=== PATIENT | female | born 1955 | race Caucasian/White ===

== ENCOUNTER → 2016-03-11 06:58 | Outpatient (CLI) | payer OTHER ==
[2013-11-30 05:25] VITALS: BMI 24.7
[~2016-03-11 06:58] MED LIST: CREON (PANCRELI1 CAP PO; FLEXERIL5 MG PO; FOLIC ACID1 MG PO; METHOTREXATE2.5 MG PO; NEXIUM40 MG PO; ORAPRED ODT10 MG/TAB PO; TRAVATAN Z2.5 ML EACH EYE; VALTREX500 MG; VALTREX500 MG PO; VITAMIN D50000 UNIT PO
[2016-03-11 07:39] LABS: ALBUMIN 3.8 g/dL (3.4-5.0); BILIRUBIN - DIRECT 0.1 mg/dL (0.00-0.30); BILIRUBIN - INDIRECT 0.31 mg/dL (0.00-1.00); BILIRUBIN - TOTAL 0.41 mg/dL (0.2-1.3); PROTEIN - SERUM 6.6 g/dL (6.4-8.2)
== END ==
LOC: D.MRI 06:58
PROVIDERS: Internal Medicine Gastroenterology
DX: K85.90 Acute pancreatitis without necrosis or infection, unspecified (principal); R10.9 Unspecified abdominal pain; R74.8 Abnormal levels of other serum enzymes

== ENCOUNTER → 2016-07-25 19:36 | Outpatient (CLI) | payer OTHER ==
[2013-11-30 05:25] VITALS: BMI 24.7
== END | disposition home or self-care (01) ==
LOC: D.MAMMO 08:30
DX: Z12.31 Encounter for screening mammogram for malignant neoplasm of breast (principal)

== ENCOUNTER → 2016-09-20 08:39 | Outpatient (CLI) | payer OTHER ==
[2013-11-30 05:25] VITALS: BMI 24.7
== END | disposition home or self-care (01) ==
LOC: D.RAD 08:39
DX: Z09 Encounter for follow-up examination after completed treatment for conditions other than malignant neoplasm (principal)

== ENCOUNTER → 2017-12-25 16:38 | Outpatient (CLI) | payer OTHER ==
[2013-11-30 05:25] VITALS: BMI 24.7
== END | disposition home or self-care (01) ==
LOC: D.MAMMO 13:45
DX: Z12.31 Encounter for screening mammogram for malignant neoplasm of breast (principal)

== ENCOUNTER 2018-09-06 10:44 | Emergency (ER) | payer MEDICARE, OTHER ==
[~2018-09-06] VITALS: Ht 149.9 cm; Wt 54.5 kg
[2018-09-06 10:48] VITALS: Ht 149.9 cm; Wt 54.5 kg
[2018-09-06] MEDS ORDERED: OMEPRAZOLE20 M1 PO (10:51)
[2018-09-06 11:39] LABS: BASOPHILS 0 % (0-2); EOSINOPHILS 0.1 % (0-7); HEMATOCRIT 42.9 % (36.0-48.0); HEMOGLOBIN 14.9 g/dL (12-16); IMMATURE GRANULOCYTES 0.2 % (0-5); LYMPHOCYTES 2.9 % (15-50); MCH 34.6 pg (26.0-34.0); MCHC 34.7 g/dL (31.0-37.0); MCV 99.5 fL (80.0-100.0); MONOCYTES 3.5 % (2-11); NEUTROPHILS 93.3 % (40-80); PLATELET COUNT 219 10x3/uL (130-400); RBC 4.31 10x6/uL (4.00-5.40); RDW 12.6 % (11.5-14.5); WBC 12.5 10x3/uL (4.8-10.8)
[2018-09-06 11:56] LABS: ALBUMIN 3.7 g/dL (3.4-5.0); ALKALINE PHOSPHATASE 91 U/L (46-116); ALT (SGPT) 27 U/L (10-68); BILIRUBIN - TOTAL 0.41 mg/dL (0.2-1.3); CALC OSMOLALITY 274 mosm/kg (275-300); CALCIUM 8.9 mg/dL (8.5-10.1); CHLORIDE - SERUM 102 mmol/L (98-107); CREATININE - SERUM 0.9 mg/dL (0.6-1.3); GLUCOSE 120 mg/dL (74-106); POTASSIUM - SERUM 4.1 mmol/L (3.5-5.1); PROTEIN - SERUM 7.2 g/dL (6.4-8.2); SODIUM 137 mmol/L (136-145); UREA NITROGEN 12 mg/dL (7-18); eGFR NON AFRICAN AMERICAN 67 mL/min (90-120)
[2018-09-06 12:01] LABS: AMYLASE - SERUM 82 U/L (25-115); LIPASE 252 U/L (73-393); TROPONIN-I < 0.017 ng/mL (0.000-0.060)
[2018-09-06 12:22] LABS: APPEARANCE CLEAR (CLEAR); BILIRUBIN NEGATIVE (NEGATIVE); COLOR YELLOW (YELLOW); GLUCOSE NEGATIVE (NEGATIVE); KETONE NEGATIVE (NEGATIVE); NITRITE NEGATIVE (NEGATIVE); PROTEIN TRACE mg/dL (NEGATIVE); UROBILINOGEN NORMAL (NORMAL)
[2018-09-06 12:23] LABS: BACTERIA FEW /hpf (NONE SEEN); EPITHELIAL CELLS 0-5 /hpf (0-5); RED CELLS - URINE 0-5 /hpf (0-5); WHITE CELLS - URINE 0-5 /hpf (0-5)
[2018-09-06] MEDS ORDERED: BENTYL 20 MG TA20 MG PO ×2 (13:42→13:44)
[2018-09-06] MEDS ORDERED: BACLOFEN20 M1 PO (13:44)
[2018-09-06 14:02] VITALS: BP 125/69
== END 2018-09-06 14:03 | disposition home or self-care (01) ==
LOC: D.ER 10:44
PROVIDERS: Emergency Medicine
DX: R55 Syncope and collapse (principal); S20.211A Contusion of right front wall of thorax, initial encounter; W18.30XA Fall on same level, unspecified, initial encounter; Y93.89 Activity, other specified; Y92.012 Bathroom of single-family (private) house as the place of occurrence of the external cause; K58.9 Irritable bowel syndrome, unspecified